=== PATIENT | female | born 1945 | race Asian ===

== ENCOUNTER 2022-07-28 08:28 | Day surgery (SDC) | payer OTHER ==
[~2022-07-28] VITALS: Ht 167.6 cm; Wt 51.7 kg
[2022-07-28] MEDS ORDERED: fentaNYL citrate 0.05 MG/ML VIAL ONE (09:56)
[2022-07-28] MEDS ORDERED: LIDOCAINE 2% 100 MG/5 ML UJET TP ONE (09:56)
[2022-07-28] MEDS ORDERED: fentaNYL citrate 0.05 MG/ML VIAL IVP ONE (11:00)
== END 2022-07-28 10:57 | disposition home or self-care (01) ==
LOC: MDS 08:28 → MMU 08:28 → MDS 10:57
PROVIDERS: ATTEND Internal Medicine Gastroenterology
DX: Z12.11 Encounter for screening for malignant neoplasm of colon (principal); I10 Essential (primary) hypertension; E78.5 Hyperlipidemia, unspecified; Z79.899 Other long term (current) drug therapy; Z20.822 Contact with and (suspected) exposure to COVID-19
CPT/HCPCS: 87426; G0121; J3010